=== PATIENT | female | born 1970 | race Caucasian/White ===

== ENCOUNTER 2021-02-14 16:44 | Emergency (ER) | payer OTHER ==
[2021-02-14 18:29] LABS: HEMOGLOBIN 12.1 gm/dl (12.3-15.3); RED BLOOD COUNT 5.12 M/UL (4.00-5.10); WHITE BLOOD COUNT 8.5 K/UL (4.5-11.0)
[2021-02-14 18:48] LABS: BUN/CREATININE RATIO 13 (0-10)
[2021-02-14] MEDS ORDERED: ZOFRAN ODT 4 MG4 MG PO (20:37)
[2021-02-14] MEDS ORDERED: OMNICEF 300 MG300 MG PO (20:37)
== END 2021-02-14 20:55 | disposition home or self-care (01) ==
LOC: ER1 16:44
PROVIDERS: Physician Assistant
DX: N39.0 Urinary tract infection, site not specified (principal); M54.5 Low back pain; F17.200 Nicotine dependence, unspecified, uncomplicated; Z90.49 Acquired absence of other specified parts of digestive tract; Z88.5 Allergy status to narcotic agent
CPT/HCPCS: 80053; 81001; 83690; 84703; 85025; 96374; 96375; 99284

== ENCOUNTER 2021-03-14 23:27 | Emergency (ER) | payer OTHER ==
[~2021-03-14 23:27] MED LIST: OMNICEF 300 MG300 MG PO; ZOFRAN ODT 4 MG4 MG PO
[2021-03-15 00:37] LABS: HEMOGLOBIN 12.1 gm/dl (12.3-15.3); RED BLOOD COUNT 4.64 M/UL (4.00-5.10); WHITE BLOOD COUNT 4.8 K/UL (4.5-11.0)
[2021-03-15 00:56] LABS: BUN/CREATININE RATIO 18 (0-10)
[2021-03-15] MEDS ORDERED: MACROBID 100 M100 MG PO (03:19)
[2021-03-15] MEDS ORDERED: ZOFRAN ODT 4 MG4 MG PO (03:19)
== END 2021-03-15 03:35 | disposition home or self-care (01) ==
LOC: ER1 23:27
PROVIDERS: Family Medicine
DX: I95.9 Hypotension, unspecified (principal); N39.0 Urinary tract infection, site not specified; R11.10 Vomiting, unspecified; Z90.49 Acquired absence of other specified parts of digestive tract; Z88.5 Allergy status to narcotic agent; F17.200 Nicotine dependence, unspecified, uncomplicated; Z98.84 Bariatric surgery status
CPT/HCPCS: 80053; 81001; 83605; 83735; 85025; 87077; 87086; 87186; 93005; 96374; 99284; J2405; J7030